=== PATIENT | female | born 1965 | race Caucasian/White ===

== ENCOUNTER 2017-05-22 11:21 | Outpatient (CLI) | payer OTHER, MEDICARE | END 2017-05-22 11:22 | disposition home or self-care (01) | LOC: BICRAD 11:21 | PROVIDERS: ATTEND Internal Medicine Rheumatology | DX: M06.4 Inflammatory polyarthropathy (principal); M51.36 Other intervertebral disc degeneration, lumbar region; N20.0 Calculus of kidney; Z90.49 Acquired absence of other specified parts of digestive tract | CPT/HCPCS: 72100 ==

== ENCOUNTER 2017-06-01 13:59 | Inpatient (IN) | payer OTHER, MEDICARE ==
[2017-06-01 15:31] VITALS: BMI 25.7
[2017-06-01] MEDS ORDERED: Morphine 5 MG/ML SYRINGE SLOW IVP PRN ×2 (16:38→18:54)
[2017-06-01] MEDS ORDERED: Metoclopramide HCl 10 MG/2 ML VIAL IVP PRN (16:39)
[2017-06-01] MEDS ORDERED: Ondansetron HCl/PF 4 MG/2 ML Vial IVP PRN (16:39)
[2017-06-01] MEDS: Morphine 5 MG/ML SYRINGE SLOW IVP PRN ×2 (16:47→21:00)
[2017-06-01 17:07] LABS: Bacteria/HPF None Seen HPF (None Seen); Hyaline Casts/LPF NONE SEEN LPF (0-3 Hyaline); RBC/HPF None Seen HPF (0-3); Squamous Epithelial 0-3 HPF (0-3); WBC/HPF None Seen HPF (0-3)
[2017-06-01] MEDS: Lactated Ringer's 1,000 ML IV SCH (17:29)
[2017-06-01] MEDS: cefTRIAXone\\ROCEPHIN 2 GM in Sodium Chloride 0.9% 100 ML IVPB SCH (18:21)
[2017-06-01] MEDS: oxyCODONE/Acetaminophen 5 mg/325 mg Tablet PO PRN ×2 (18:38→23:12)
--- NOTE | 2017-06-01 19:54 | RAD ---
RADIOGRAPH ABDOMEN ONE VIEW: Date: 06-01-17 History: 51-year-old female with left flank pain. Comparison: None. FINDINGS: There is a 1 x 0.4 cm calculus in the left upper quadrant projecting just lateral and superior to L2 transverse process, consistent with a calculus at the left ureteropelvic junction, as demonstrated on the recent CT. IMPRESSION: 10 mm calculus obstructing the left ureteropelvic junction. POS: [facility]
[2017-06-01] MEDS: Docusate 100 MG CAP PO SCH (21:00)
[2017-06-01] MEDS: Famotidine/PF 20 mg/2ml Vial SLOW IVP SCH (21:00)
[2017-06-01] MEDS: traMADol HCl 50 MG TAB PO PRN (21:01)
[2017-06-02] MEDS: Morphine 5 MG/ML SYRINGE SLOW IVP PRN ×2 (02:39→06:02)
[2017-06-02] MEDS: Lactated Ringer's 1,000 ML IV SCH ×2 (06:05→11:54)
[2017-06-02] MEDS ORDERED: Iothalamate Meglumine 60% 50 ML VIAL FS ONE (06:20)
[2017-06-02] MEDS ORDERED: Fentanyl 250 MCG/5 ML VIAL ONE (06:47)
--- NOTE | 2017-06-02 07:07 | HP ---
HISTORY OF PRESENT ILLNESS: The patient is a 51-year-old female, who was seen in the emergency room at an outside ER facility and found to have an obstructing stone with significant pain and so was transferred for admission. The patient has a prior history of stones and has literally passed 2 or 3 in the past year and she knew she had a larger stone that still needed to pass and she awoke with significant left-sided renal colic and nausea, but no vomiting. She almost passed out, trying to drive herself to the emergency room and ultimately required an ambulance to get her there. She does not have any hematuria, fever, or chills. Normally, she has frequency every 2-3 hours and nocturia x2-3. She denies any urinary leakage. PAST MEDICAL HISTORY: Seasonal allergies, fibromyalgia, and arthritis of the hips. PAST SURGICAL HISTORY: Wrist multiple times after an injury and gallbladder. PAST HOME HEALTH CARE SOCIAL WORKER: She has four pregnancies with three vaginal deliveries and one miscarriage. She also had a tubal and she is postmenopausal. ALLERGIES: Include SULFA. MEDICATIONS: Include topiramate, tramadol, Cymbalta, and vitamins. REVIEW OF SYSTEMS: Reveals she has had peritonitis, wrist issues, generalized pain for which she was recently given Cymbalta. No chest pain, shortness of breath or cough. She had a colonoscopy last year and was noted to have polyps and was told she can go 5 years. She had a mammogram and Pap smear in 2017 that were normal. She normally has occasional diarrhea and she had that upon admission today. SOCIAL HISTORY: She does not drink, smoke or use drugs. FAMILY HISTORY: Dad at 72 of lung cancer. He did smoke. Mom at 67 of failure to thrive after dad neither of colon cancer. PHYSICAL EXAMINATION: GENERAL: She appears very uncomfortable in the bed and was receiving medication that initially helped, but still had pain after. She was slightly flushed, but not diaphoretic. VITAL SIGNS: Temperature 97.7, pulse 67, blood pressure 113/57 and respiratory rate of 18. NECK: She had no JVD or scleral icterus. CARDIAC: Heart was regular rate and rhythm. No murmurs, gallops or rubs. LUNGS: Clear to auscultation bilaterally. ABDOMEN: Soft nontender. She did have left costovertebral angle tenderness. EXTREMITIES: She had no lower extremity edema. LABORATORY VALUES: Reveal a normal CBC, normal BUN and creatinine at 7 and 0.94. Her urinalysis was by dip all negative. Her urinalysis from March showed some microhematuria and 1+ bacteria and her microscopic analysis from 2016 showed 1+ calcium oxalate crystals. IMAGING: CT scan from 06/01/2017, which was reviewed personally revealed a 1.2 cm x 9 mm x 6 mm UPJ stone with hydronephrosis. No other stones noted. UPJ stone was seen on gin pole operator. Bladder was decompressed. There were no masses or right stones/ hydronephrosis. ASSESSMENT AND PLAN: We have a 51-year-old female with a large obstructing proximal stone with intractable pain, admitted urgently, good pain control and extracorporal shockwave lithotripsy. We reviewed this in great detail and they consented for this. Assuming that her microanalysis shows no concern for infection and she does not have a temperature and then we can proceed with stent and as well at the same time. Risks and benefits reviewed. All questions answered. KENISHA
[2017-06-02] MEDS ORDERED: Furosemide 20 MG/2 ML VIAL ONE (08:21)
[2017-06-02] MEDS ORDERED: FLU VACC QS2017-18 36 mo. & older 0.5 ML SYRINGE IM ONE (09:00)
[2017-06-02 09:42] LABS: Bilirubin Negative (Negative); Blood, Urine Large (Negative); Clarity TURBID (Clear); Glucose, Urine (Dipstick) Negative (Negative); Leukocyte Large (Negative); Nitrite Negative (Negative); Protein, Urine (Dipstick) Trace mg/dL (Neg-Trace); Specific Gravity, Urine 1.039 (1.002-1.036); Urobilinogen 0.2 mg/dL (0.2-1.0); pH, Urine 5.5 (5.0-9.0)
[2017-06-02 09:44] LABS: RBC/HPF GREATER THAN 50-TNTC HPF (0-3); Squamous Epithelial None Seen HPF (0-3)
[2017-06-02 09:55] LABS: Pathc Cast-AUWi Flag 2.85 (0-2.49)
[2017-06-02 10:19] LABS: Bacteria/HPF 1+ HPF (None Seen); Hyaline Casts/LPF NONE SEEN LPF (0-3 Hyaline)
[2017-06-02] MEDS: Docusate 100 MG CAP PO SCH (10:21)
[2017-06-02] MEDS: Famotidine/PF 20 mg/2ml Vial SLOW IVP SCH (10:21)
[2017-06-02] MEDS: traMADol HCl 50 MG TAB PO PRN ×2 (11:48→15:45)
--- NOTE | 2017-06-02 12:56 | OP ---
DATE OF SURGERY: 06/02/2017 PREOPERATIVE DIAGNOSIS: Left ureteropelvic junction stone. POSTOPERATIVE DIAGNOSIS: Left ureteropelvic junction stone. PROCEDURE PERFORMED: Cystoscopy, left retrograde pyelogram, insertion of left ureteral stent, 6 x 26 left extracorporal shockwave lithotripsy. SURGEON: Neisha Vora M.D. ANESTHESIA: General with laryngeal mask airway. FINDINGS: Adequate placement of a left stent with the stone pushed into the proximal renal pelvis. Adequate fragmentation of the stone, 2500 shocks at a power level of 5/6 at a rate of 70 per minute. No complications. SPECIMEN: Urine from the left renal pelvis. ESTIMATED BLOOD LOSS: No blood loss. INDICATION: The patient is a 51-year-old female who was admitted urgently for stent given retractabl e pain on the left due to 1.2 cm stone. PROCEDURE IN DETAIL: The patient was brought to the room by Anesthesia and lying table in supine pos ition. After given general anesthetic, her legs were placed in lithotomy position. Her perineum was prepped and draped in sterile fashion. Using a 22-Cuban cystoscope and a 30-degree lens, urethra w as traversed and bladder inspected and was found to be without lesions. The left ureteral orifice wa s intubated and retrograde pyelogram performed revealing a filling defect at the UPJ. The stone was then pushed into the renal pelvis as the Pollack catheter was advanced. Hydronephrosis was noted and 10 mL of clear urine was extracted and sent for specimen. Then, a 6 x 26 double-J was placed with g ood coil visualized in the renal pelvis via fluoroscopy and a good coil visualized in the bladder. S cope was broken apart, bladder drained and then removed in its entirety. The patient was then reposi tioned supine. Once the lithotripter identified this stone in multiple planes and a total of 2500 shocks at a max po wer of 5/6 at a maximum rate of 70 per minute were delivered. Good fragmentation was noted throughou t the case. The patient tolerated procedure well and was then awakened and transferred to PACU in st able condition.
[2017-06-02] MEDS ORDERED: diphenhydrAMINE 50 MG/ML VIAL ONE (14:59)
[2017-06-02] MEDS ORDERED: Ondansetron HCl/PF 4 MG/2 ML Vial ONE (14:59)
[2017-06-02] MEDS ORDERED: ePHEDrine/0.9% NaCl/PF SYRINGE 50 mg/10 ml ONE (14:59)
[2017-06-02] MEDS ORDERED: Lidocaine 1% PF 5 ML VIAL ONE (14:59)
[2017-06-02] MEDS ORDERED: Propofol 200 MG/20 ML VIAL ONE (14:59)
[2017-06-02] MEDS ORDERED: Dexamethasone 20 MG/5 ML VIAL ONE (14:59)
[2017-06-02] MEDS ORDERED: Oxybutynin 5 MG TAB PO SCH (15:00)
[2017-06-02 17:15] VITALS: BP 111/62; TEMP 97.6
[2017-06-02] MEDS: cefTRIAXone\\ROCEPHIN 2 GM in Sodium Chloride 0.9% 100 ML IVPB SCH (18:21)
--- NOTE | 2017-06-03 14:08 | DIS ---
ADMISSION DIAGNOSIS: Obstructing left ureteropelvic junction stone with intractable pain. DISCHARGE DIAGNOSIS: Obstructing left ureteropelvic junction stone with intractable pain, status pos t stent and extracorporeal shock wave lithotripsy. The patient had significant pain throughout her stay. Both preop and postop, but a stent had been pl aced and shockwave therapy performed successfully ensuring that the kidney was adequately drained. S he is tolerating a liquid diet and her pain was manageable with oral medication. She was discharged. She will follow up in the office for stent removal.
== END 2017-06-02 20:00 | disposition home or self-care (01) | DRG 691 ==
LOC: 3SE 15:21
PROVIDERS: ADMIT Urology; ATTEND Urology
PROC: 0TF4XZZ Fragmentation in Left Kidney Pelvis, External Approach (ICD-10-PCS; principal; 2017-06-02)
PROC: BT1F0ZZ Fluoroscopy of Left Kidney, Ureter and Bladder using High Osmolar Contrast (ICD-10-PCS; 2017-06-02)
PROC: 0T778DZ Dilation of Left Ureter with Intraluminal Device, Via Natural or Artificial Opening Endoscopic (ICD-10-PCS; 2017-06-02)
DX: N13.2 Hydronephrosis with renal and ureteral calculous obstruction (principal); M16.0 Bilateral primary osteoarthritis of hip; M79.7 Fibromyalgia; Z87.442 Personal history of urinary calculi; Z88.2 Allergy status to sulfonamides; Z79.899 Other long term (current) drug therapy
CPT/HCPCS: 74018; 81001; 81015; 87070; 87077; 87186; 87205; J2270; C1758; J0696; J1100; J1200; J1940; J2001; J2405; J2704; J3010; J7050; Q9961; S0028

== ENCOUNTER 2017-06-07 00:53 | Emergency (ER) | payer OTHER, MEDICARE ==
[2017-06-07 01:27] LABS: Bilirubin Negative (Negative); Blood, Urine Moderate (Negative); Glucose, Urine (Dipstick) Negative (Negative); Leukocyte Negative (Negative); Nitrite Negative (Negative); Protein, Urine (Dipstick) Negative (Neg-Trace); Urobilinogen 0.2 mg/dL (0.2-1.0)
[2017-06-07 01:28] LABS: Clarity Clear (Clear); Specific Gravity, Urine 1.003 (1.002-1.036)
[2017-06-07 01:31] LABS: Pathc Cast-AUWi Flag 0.29 (0-2.49)
[2017-06-07 01:33] LABS: Bacteria/HPF None Seen HPF (None Seen); Crystals/HPF None Seen HPF (Negative); Hyaline Casts/LPF NONE SEEN LPF (0-3 Hyaline); Pregnancy Test - Urine (BHCG) Negative (Negative); Pregu Control Background? CLEAR/WHITE (CLR/WHITE); Pregu Control Bar Appear? YES (CONTROL BAR); RBC/HPF 0-3 HPF (0-3); Specific Gravity 1.003 (1.002-1.036); Squamous Epithelial None Seen HPF (0-3); WBC/HPF None Seen HPF (0-3)
[2017-06-07 01:38] LABS: #Eosinphils 0.1 thou/uL (0.0-0.7); #Lymphocytes 1.3 thou/uL (1.20-3.40); #Monocytes 0.4 thou/uL (0.11-0.59); #Neutrophils 9.7 thou/uL (1.40-6.50); %Basophils 0.3 % (0.0-1.0); %Eosinophils 0.9 % (0.0-10.0); %Lymphocytes 11.4 % (21.0-51.0); %Monocytes 3.5 % (0.0-10.0); %Neutrophils 83.9 % (42.0-75.0); Mean Corpuscular HGB CONC 34.5 g/dL (32.0-36.0); Mean Corpuscular Hemoglobin 34.4 pg (27.0-31.0); Mean Corpuscular Volume 99.5 fl (81.0-99.0); Mean Platelet Volume 8.4 fL (7.4-10.4); Platelet Count 239 thou/uL (130-400); RBC Distribution Width 11.5 % (11.5-14.5); Red Blood Cell (RBC) Count 4.67 mill/uL (4.20-5.40); White Blood Cell (WBC) Count 11.6 thou/uL (4.8-10.8)
[2017-06-07 02:03] LABS: ALT (SGPT) 21 U/L (8-55); AST (SGOT) 20 U/L (5-34); Albumin 4.5 g/dL (3.5-5.0); Alkaline Phosphatase 93 U/L (40-150); Anion Gap 14 mmol/L (10-20); BUN (Urea Nitrogen) 6 mg/dL (9.8-20.1); Bilirubin, Total 0.6 mg/dL (0.2-1.2); Calc. Creatinine Clearance 0 mL/min (70-130); Carbon Dioxide 25 mmol/L (22-29); Chloride 107 mmol/L (98-107); Estimated GFR-MDRD 72; Globulin 3.2 g/dL (2.4-3.5); Glucose 114 mg/dL (70-105); Potassium 3.5 mmol/L (3.5-5.1); Protein, Total 7.7 g/dL (6.0-8.3); Sodium 142 mmol/L (136-145)
[2017-06-07] MEDS ORDERED: Morphine 4 MG/ML VIAL ONE (02:17)
[2017-06-07] MEDS ORDERED: Ondansetron HCl/PF 4 MG/2 ML Vial ONE (02:17)
[2017-06-07] MEDS ORDERED: Promethazine HCl 25 MG/ML VIAL ONE (03:05)
--- NOTE | 2017-06-07 13:44 | CT ---
PRELIMINARY REPORT/[facility]/EMERGENCY AFTER HOURS PROCEDURE: EXAM: CT Abdomen and Pelvis Without Intravenous Contrast EXAM DATE/TIME: Exam ordered 06/07/2017 2:31 AM CLINICAL HISTORY: 51 years old, female; Pain and signs and symptoms; Nausea and vomiting; Abdominal pain; Generalized; Prior surgery; Patient HX: Er 1; Abdominal pain and feeling light headed that started today. HX of ki dney stones. Surgical history of cholecystectomy, surgical history of tubal ligation. Kidney stone removal. TECHNIQUE: Axial computed tomography images of the abdomen and pelvis without intravenous contrast. Coronal reformatted images were created and reviewed. COMPARISON: No relevant prior studies available. FINDINGS: Lower thorax: No acute findings. ABDOMEN: Liver: Unremarkable. Gallbladder and bile ducts: Prior cholecystectomy. No ductal dilation. Pancreas: Unremarkable. No ductal dilation. Spleen: Unremarkable. No splenomegaly. Adrenals: Unremarkable. No mass. Kidneys and ureters: Left ureteral stent present. Mild inflammation of the left renal pelvis. No hydr onephrosis. Small nonobstructing stone in the left kidney. Stomach and bowel: No bowel wall thickening or intestinal obstruction. Appendix: Normal appendix. PELVIS: Bladder: Unremarkable. No stones. Reproductive: Unremarkable as visualized. ABDOMEN and PELVIS: Intraperitoneal space: Unremarkable. No free air. No significant fluid collection. Bones/joints: No acute fracture. No dislocation. Soft tissues: Unremarkable. Vasculature: Unremarkable. No abdominal aortic aneurysm. Lymph nodes: Unremarkable. No enlarged lymph nodes. IMPRESSION: Mild inflammation of the left renal pelvis which is likely due to the indwelling left ureteral stent. Left pyelonephritis not excluded. No hydronephrosis. Thank you for allowing us to participate in the care of your patient. Dictated and Authenticated by: Alcides Temple MD 06/07/2017 3:09 AM Central Time ([place] & [place]) FINAL REPORT ABDOMEN CT WITHOUT CONTRAST PELVIC CT WITHOUT CONTRAST: Date: 06/07/17 COMPARISON: 06/01/17. TECHNIQUE: Abdomen and pelvic CT are performed without contrast. Coronal reformatted images are submitted for in terpretation. FINDINGS: This report is in agreement with the preliminary report by [facility]. The previously noted calculus in the left ureteropelvic junction is no longer evident. There is a left-sided double pigtail ureteral sten t. There is mild inflammatory change in the left renal pelvis, likely due to indwelling catheter. No evidence of bowel obstruction. Normal caliber appendix is noted. Solid organs are grossly unremarkabl e. Nonobstructing punctate calcification in left renal pelvis noted. POS: [facility]
== END 2017-06-07 04:20 | disposition home or self-care (01) ==
LOC: ERS 00:53
DX: R11.2 Nausea with vomiting, unspecified (principal); R31.9 Hematuria, unspecified; M79.7 Fibromyalgia
CPT/HCPCS: 74176; 80053; 81003; 81015; 81025; 83605; 85025; 87040; 87086; 96361; 96365; 96375; J2270; J2405; J2550

== ENCOUNTER 2017-07-02 11:49 | Outpatient (CLI) | payer OTHER, MEDICARE ==
--- NOTE | 2017-07-02 14:15 | RAD ---
AP ABDOMINAL RADIOGRAPH: DATE: 07/02/17. HISTORY: Calculus of kidney. COMPARISON: 06/01/17. FINDINGS: Previously noted calcification overlying the left renal shadow on the prior exam is not seen on today 's study. No definite calculus is seen overlying the expected location of the renal shadows or along the expected course of either ureter. Phleboliths again overlie the pelvis. Surgical clips are aga in seen overlying the right upper quadrant. The bowel gas pattern is nonspecific. NO other interval change. IMPRESSION: 1. No suspicious calcifications are seen to suggest renal or ureteral calculi. The previously seen calculus overlying the left renal shadow is not present on this exam. Left ureteral stent seen on CT abdomen and pelvis on 06/07/17 is also not seen on this exam. There is an increased density focus ov erlying the left aspect of the sacrum shown to represent a bone island on recent CT exam. 2. Nonspecific bowel gas pattern. POS: [facility]
== END 2017-07-02 11:50 | disposition home or self-care (01) ==
LOC: RAD 11:49
PROVIDERS: ATTEND Urology
DX: N20.2 Calculus of kidney with calculus of ureter (principal)
CPT/HCPCS: 74018

== ENCOUNTER 2017-09-02 14:14 | Outpatient (CLI) | payer OTHER, MEDICARE | END 2017-09-02 14:15 | disposition home or self-care (01) | LOC: BICRAD 14:14 | PROVIDERS: ATTEND Internal Medicine Rheumatology | DX: M47.812 Spondylosis without myelopathy or radiculopathy, cervical region (principal) | CPT/HCPCS: 72052 ==

== ENCOUNTER 2017-10-22 13:06 | Outpatient (CLI) | payer OTHER, MEDICARE | END 2017-10-22 13:07 | disposition home or self-care (01) | LOC: BICRAD 13:06 | PROVIDERS: ATTEND Internal Medicine Rheumatology | DX: M79.671 Pain in right foot (principal); M79.672 Pain in left foot ==

== ENCOUNTER 2017-10-30 08:36 | Outpatient (CLI) | payer OTHER, MEDICARE ==
--- NOTE | 2017-10-30 11:16 | MRI ---
MRI LEFT ANKLE WITHOUT CONTRAST: HISTORY: M79.202. COMPARISON: None. FINDINGS TENDONS: The syndesmotic recess has abnormally increased fluid signal. There is a normal appearance of the AITFL and PITFL. The ATFL and PTFL are intact, as well as the CFL. LIGAMENTS: The spring ligament is intact. The superficial and deep deltoid are intact. BONES: There is edema at the plantar aspect of the calcaneus, at the central plantar fascia insertio n. There is low grade edema at the posterior margin of the tibial plafond with underlying cartilage loss. No acute fracture. No malalignment. No stress edema. TENDONS: The Achilles tendon is intact. There is normal physiologic fluid within the retrocalcaneal bursa. The flexor and extensor tendons are intact. Deep to the extensor tendons, at the level of the tarsal sinus, extending from the tarsal sinus, is a ganglion pseudo cyst along the limbs of the extensor retinaculum. IMPRESSION: 1. Abnormal thickening of the plantar fascia with insertional edema at the plantar aspect of the kerwin caneus, suggesting plantar fasciitis. There is superficial fluid within the subcutaneous fat. 2. Ganglion pseudocyst at the sinus tarsi, likely sequela of chronic degeneration. Pseudocyst exten ds along the limbs of the extensor retinaculum. 3. Underlying cartilage fraying of the posteromedial tibial plafond with underlying sequela of react aroldo marrow changes. POS: [facility]
--- NOTE | 2017-10-30 11:42 | MRI ---
MRI RIGHT ANKLE WITHOUT CONTRAST: Date: 10/30/17 HISTORY: M79.672, pain in unspecified foot. COMPARISON: None. FINDINGS: Ligaments: The AITFL and PITFL are intact. There is moderate joint effusion with fluid extending to the recess o f the syndesmosis. The ATFL, PTFL, and TFL are all intact. Superficial and deep deltoid ligaments are intact. The spring ligament is intact. Tendons: Normal location of the peroneal tendons. Longitudinal split tear is present in the peroneal tendon at the level of the lateral malleolar tip for a length of 2.0 cm with small volume tenosynovial fluid. The extensor and flexor tendons are intact. Bones: There is severe edema of the insertion of the central band plantar fascia of the calcaneus. Extensive adventitial bursa formation of superficial soft tissues and fat. No acute fracture. No malalignment. Mild degenerative disease at the calcaneocuboid joint. Talar dome is intact, as well as the tibial plafond. Muscles: There is abnormal edema within the flexor digitorum musculature. IMPRESSION: 1. Severe edema with adventitial bursa formation of the plantar fascial insertion of the calcaneus w ith reactive edema within the marrow. This is likely the source of patient's symptomatology. 2. Longitudinal split tear of the peroneus brevis tendon at the level of the lateral malleolus exten ding approximately 2.0 cm. 3. Mild degenerative disease at the calcaneal cuboid joint. POS: [facility]
== END 2017-10-30 08:37 | disposition home or self-care (01) ==
LOC: MRI 08:36
PROVIDERS: ATTEND Internal Medicine Rheumatology
DX: M79.673 Pain in unspecified foot (principal); S86.311A Strain of muscle(s) and tendon(s) of peroneal muscle group at lower leg level, right leg, initial encounter; M19.071 Primary osteoarthritis, right ankle and foot; M67.472 Ganglion, left ankle and foot; R60.0 Localized edema

== ENCOUNTER 2017-11-06 16:59 | Emergency (ER) | payer OTHER, MEDICARE ==
[2017-11-06] MEDS ORDERED: Ketorolac Tromethamine 30 MG/ML VIAL ONE (18:11)
== END 2017-11-06 18:14 | disposition home or self-care (01) ==
LOC: ERS 16:59
DX: M72.2 Plantar fascial fibromatosis (principal)
CPT/HCPCS: 96372; J1885

== ENCOUNTER 2018-05-26 12:05 | Outpatient (CLI) | payer BC, MEDICARE ==
--- NOTE | 2018-05-26 13:15 | CT ---
CT ABDOMEN AND PELVIS WITHOUT CONTRAST: Multiple axial tomograms obtained through the abdomen and pelvis without IV enhancement. INDICATION: Renal calculi. Recurrent UTIs. History of renal calculi. COMPARISON: Comparison is made to CT of the abdomen and pelvis 06/07/2017. FINDINGS: Lung bases are clear. The liver, spleen, and pancreas are unremarkable. Adrenal gland is normal. Kidneys are unremarkable. No hydronephrosis. No evidence of urinary tract calculus. Ureters unrema rkable. Urinary bladder unremarkable. Small bowel loops unremarkable. Appendix appear normal. Colon unremarkable. Uterus and adnexa unre markable. No mass or adenopathy. IMPRESSION: No acute abnormality identified. POS: [facility]
== END 2018-05-26 12:06 | disposition home or self-care (01) ==
LOC: BICCT 12:05
PROVIDERS: ATTEND Urology
DX: N20.0 Calculus of kidney (principal); N39.0 Urinary tract infection, site not specified
CPT/HCPCS: 74176

== ENCOUNTER 2018-08-03 08:10 | Outpatient (CLI) | payer BC, MEDICARE ==
--- NOTE | 2018-08-03 10:32 | MRI ---
MRI cervical spine noncontrast: DATE: 08/03/2018 HISTORY: 53-year-old female with cervicalgia and Cervical spondylosis. COMPARISON: None available FINDINGS: Vertebral body heights are maintained. Alignment is normal. There is mild reversal of curvature raisi ng the possibility of muscle spasm. There is mild to moderate bilateral facet DJD at C7-T1. Cervical spinal cord is normal in size and signal. C1-2: No additional findings C2-3: Normal C3-4: Normal C4-5: Tiny central disc protrusion. Otherwise normal. C5-6: Moderate disc space narrowing. Broad-based, shallow disc-osteophytic bar complex contacts the v entral surface of the spinal cord. Moderate central spinal canal stenosis. Small to moderate-sized bilateral uncinate process osteophytes cause moderate bilateral neural foraminal stenosis, right grea ter than left. C6-7:Moderate disc space narrowing. Broad-based, shallow disc-osteophytic bar complex contacts the ve ntral surface of the spinal cord. Moderate central spinal canal stenosis. Moderate bilateral uncinate process osteophytes cause moderate-severe bilateral neural foraminal stenosis. C7-T1: No central or neural foraminal stenosis. IMPRESSION: Mild to moderate cervical spondylosis consisting of degenerative disc disease at C5-6 and C6-7, where there is moderate central spinal canal stenosis and high-grade bilateral neural foraminal stenosis.
== END 2018-08-03 08:11 | disposition home or self-care (01) ==
LOC: SCSMRI 08:10
PROVIDERS: ATTEND Internal Medicine Rheumatology
DX: M47.812 Spondylosis without myelopathy or radiculopathy, cervical region (principal); M48.02 Spinal stenosis, cervical region; M50.322 Other cervical disc degeneration at C5-C6 level
CPT/HCPCS: 72141

== ENCOUNTER 2018-08-30 13:07 | Outpatient (CLI) | payer BC, MEDICARE ==
--- NOTE | 2018-08-30 14:13 | ULT ---
RIGHT BREAST ULTRASOUND: 08/30/18 COMPARISON: Mammogram 08/23/18. HISTORY: Multiple well circumscribed focal asymmetries in the right breast on mammography. TECHNIQUE: Multiplanar calderon scale and color Doppler images are obtained in a targeted ultrasound of the right br east. FINDINGS: At the 3 o'clock position of the right breast, approximately 3 cm from the nipple, there is a well ci rcumscribed anechoic cyst measuring 8 mm in greatest dimension. At the 3 o'clock position of the righ t breast approximately 1 cm from the nipple, there is a well circumscribed 5 mm anechoic cyst. No suspicious shadowing or solid mass is seen. IMPRESSION: BIRADS 2: Benign Finding(s) Routine annual screening mammography (for women over age 40). POS: [facility]
== END 2018-08-30 13:08 | disposition home or self-care (01) ==
LOC: BICULT 13:07
PROVIDERS: ATTEND Obstetrics & Gynecology
DX: N63.10 Unspecified lump in the right breast, unspecified quadrant (principal)